=== PATIENT | female | born 1960 | race Caucasian/White ===

== ENCOUNTER 2016-12-08 10:10 | Inpatient (IN) | payer MEDICARE, BC ==
[~2016-12-08] VITALS: Ht 160 cm; Wt 73.4 kg
[~2016-12-08 10:10] MED LIST: ACTOS45 MG OR; ALBUTEROL0.5 % IN; ALBUTEROL90 MCG IN; CHERATUSSIN OR; DETROL LA4 MG OR; DETROL2 MG OR; ENALAPRIL20 MG OR; FOLIC ACID1 MG OR; GLIPIZIDE5 MG OR; HUMULIN R1 M1 SC; HYDROCHLOROT25 MG OR; LANTUS100 MG/ML SC; LIPITOR20 MG OR; LIPITOR40 MG OR; MELOXICAM15 MG OR; METFORMIN500 M1 OR; METOPROLOL25 M1 OR; METOPROLOL25 MG OR; MEVACOR20 MG PO; NAPROSYN500 MG OR; NORVASC PO; PLAVIX75 MG OR; PLAVIX75 MG PO; RANITIDINE150 M1 OR; VITAMIN D50000 UN1 OR; ZITHROMAX250 MG OR; ZOSTAVAX IM
--- NOTE | 2016-12-08 10:37 | NUR ---
PT TRIAGED, TO ROOM 8 IN STABLE CONDITION VIA WC. CHANGED INTO GOWN.
--- NOTE | 2016-12-08 10:37 | NUR ---
DR CHEN TO BEDSIDE.
--- NOTE | 2016-12-08 11:47 | NUR ---
PT IN NO ACUTE DISTRESS. LAB AT BEDSIDE ANSD LABS OBTAINED.VSS. DENIES DISCOMFORT
[2016-12-08 12:01] LABS: HEMATOCRIT 35.6 % (37.0-47.0); HEMOGLOBIN 11.4 g/dl (12.0-16.0); IMMATURE GRANULOCYTES 0.5 % (0.0-1.0); MEAN CELL VOLUME 84.6 fL CALC (80.0-100.0); MEAN CORPUSCULAR HGB 27.1 pG CALC (26.0-32.0); NEUT# 11.48 thou/uL (2.00-7.15); RED BLOOD COUNT 4.21 mill/uL (4.20-5.60)
[2016-12-08 12:20] LABS: ALBUMIN 3.5 g/dL (3.2-5.0); ALKALINE PHOSPHATASE 81 u/l (38-126); AMYLASE 55 u/l (30-110); ANION GAP 15 (6-22 (CALC)); BILIRUBIN, TOTAL 0.4 mg/dL (0.0-1.4); BUN 27 mg/dL (7-17); BUN/CREATININE RATIO 26 (12-20 (CALC)); CALCIUM 9.5 mg/dL (8.4-10.2); CARBON DIOXIDE 22 mmol/l (22-30); CHLORIDE 99 mmol/l (95-108); GFR 57 ML/MIN (>=60 (CALC)); GFR FOR AFR.AMER. > 60 ML/MIN (>=60 (CALC)); GLUCOSE 337 mg/dL (65-105); LIPASE 87 u/l (23-300); POTASSIUM 4.9 mmol/l (3.5-5.1); SGOT/AST 36 u/l (14-36); SGPT/ALT 49 u/l (9-52); SODIUM 132 mmol/l (137-146); TOTAL PROTEIN 7.3 g/dL (6.3-8.2)
--- NOTE | 2016-12-08 12:35 | NUR ---
UP TO BATHROOM WITH ASSIST. NO ACUTE DISTRESS. AWARE OF AWAITING
[2016-12-08] MEDS ORDERED: AMOX/K CLAV875 M1 PO (13:37)
[2016-12-08] MEDS ORDERED: TOPROL XL50 MG PO (13:38)
[2016-12-08] MEDS ORDERED: ATORVASTATIN CA80 MG PO (13:39)
[2016-12-08] MEDS ORDERED: ENALAPRIL20 MG PO (13:39)
[2016-12-08] MEDS ORDERED: LANTUS SOLOSTAR SC (13:41)
[2016-12-08] MEDS ORDERED: GABAPENTIN300 MG PO (13:42)
[2016-12-08] MEDS ORDERED: ZOFRAN ODT4 MG PO (13:43)
--- NOTE | 2016-12-08 13:50 | NUR ---
ATTEMPTED TO CALL REPORT. NURSE IN PT ROOM WILL CALL BACK
[2016-12-08 13:55] LABS: C. DIFFICILE TOXIN A&B NEGATIVE (NEGATIVE)
--- NOTE | 2016-12-08 14:05 | NUR ---
RT EJ INSERTED BY DR CHEN. PT TOELRATED WELL.
--- NOTE | 2016-12-08 14:20 | NUR ---
PT UP TO BATHROOM WITH ASSIST CONTINENT OF URINE.NO STOOL
--- NOTE | 2016-12-08 14:29 | NUR ---
ATTEMTPED TO CALL REPORT TO [facility]2 NURSE UNAVAILABLE
[2016-12-08 14:30] VITALS: BP 101/57
--- NOTE | 2016-12-08 14:51 | NUR ---
CALLED REPORT TO VIJAY LOMELI MS2. PT TRANSPORTED TO DC VIA IN STABLE CONDITION
[2016-12-08 15:00] VITALS: BP 165/62
--- NOTE | 2016-12-08 15:41 | NUR ---
REPORT RECEIVED FROM HILTON IN ED, PT ARRIVED ON UNIT ALERT, EXPRESIVE APHASIA OBSERVED, ABLE TO ANSWER SOME SIMPLE QUESTIONS AND UNDERSTANSS QUESTIONS BUT UNABLE TO EXPRESS VERBALLY WITH SOME ANSWERS. SETTLED IN BED, STATES SHE HAS LITTLE PAIN TO ABDOMED. SETTLED IN BED, BODY ALARM PLACED, CALL PIERCE IN REACH.
[2016-12-08 19:10] VITALS: BP 148/60
--- NOTE | 2016-12-08 20:46 | NUR ---
REPORT RECEIVED FROM OSCAR; PT.APPEARS RESTING AT THIS TIME; CALL LIGHT W/IN REACH
[2016-12-09] VITALS (7 sets, daily range): BP systolic 121–156; BP diastolic 50–71
[2016-12-09 06:19] LABS: HEMATOCRIT 32.8 % (37.0-47.0); HEMOGLOBIN 9.8 g/dl (12.0-16.0); IMMATURE GRANULOCYTES 0.5 % (0.0-1.0); MEAN CELL VOLUME 91.9 fL CALC (80.0-100.0); MEAN CORPUSCULAR HGB 27.5 pG CALC (26.0-32.0); MEAN CORPUSCULAR HGB CONC 29.9 g/L CALC (32.0-36.0); NEUT# 7.74 thou/uL (2.00-7.15); RED BLOOD COUNT 3.57 mill/uL (4.20-5.60); RED CELL DISTRI WIDTH 13.9 % (11.5-15.5)
[2016-12-09 06:36] LABS: ANION GAP 13 (6-22 (CALC)); BUN 20 mg/dL (7-17); BUN/CREATININE RATIO 23 (12-20 (CALC)); CALCIUM 9.2 mg/dL (8.4-10.2); CARBON DIOXIDE 20 mmol/l (22-30); CHLORIDE 106 mmol/l (95-108); CREATININE 0.8 mg/dL (0.5-1.0); GFR FOR AFR.AMER. > 60 ML/MIN (>=60 (CALC)); GLUCOSE 265 mg/dL (65-105); POTASSIUM 4.7 mmol/l (3.5-5.1); SODIUM 134 mmol/l (137-146)
[2016-12-09 06:45] LABS: GFR > 60 ML/MIN (>=60 (CALC))
--- NOTE | 2016-12-09 08:32 | NUR ---
REPORT RECIEVED FROM VIJAY GARCIA. PT SITTING UP IN RECLINER CHAIR. ASSESSMENT COMPLETED. VSS. PT VOICES NO CONCERNS OR NEEDS AT THIS TIME. IVF INFUSING AT PRESCRIBED RATE. WILL CONTINUE TO MONITOR. CALL LIGHT IN REACH.
--- NOTE | 2016-12-09 14:17 | NUR ---
ASSISTED PT BACK TO BED FROM RECLINER CHAIR. STAFF ASSIST. X1. WEAKNESS TO RIGHT SIDE FROM HX OF CVA. PT TOLERATED TRANSFER WELL. IV ABT INFUSING AT THIS TIME. WILL CONTINUE TO MONITOR. CALL LIGHT IN REACH.
--- NOTE | 2016-12-09 16:00 | NUR ---
PT IS SITTING IN THE CHAIR. NO DISTRESS NOTED. IV SITE IS FREE FROM REDNESS OR EDEMA.
--- NOTE | 2016-12-09 17:30 | NUR ---
SARAH FROM HOME HEALTH CALLED AND SPOKE TO PT PT TOLD HER SHE WANTED A BATH. PT DID HAVE A SHOWER THIS AM.
--- NOTE | 2016-12-09 20:05 | NUR ---
PT. RESTING IN BED ON RIGHT SIDE WATCHING TV. ASSESSMENT COMPLETED. PT HAS HX OF CVA, UNABLE TO MOVE RUE, VERY MINIMAL MOVEMENT TO RLE. RIGHT HAND SLIGHLY CONTRACTED AND ELEVATED RIGHT ARM ONTO PILLOW. PT. ALSO HAS DIFFICULTY WITH SPEECH R/T HX OF CVA. IV SITE PATENT TO LEFT WRIST AND ORDERED IVF INFUSING. PT. CHECKED FOR BM, NONE NOTED. PT. DENIES NEEDS. ENCOURAGED TO CALL FOR ANY NEEDS. CALL LIGHT IS IN REACH. WILL CONTINUE TO MONITOR.
--- NOTE | 2016-12-09 23:41 | NUR ---
PT. RESTING IN BED WITH NO DISTRESS NOTED. DENIES NEEDS/PAIN. ENCOURAGED TO CALL FOR ANY NEEDS. CALL LIGHT IS IN REACH. WILL CONTINUE TO MONITOR.
[2016-12-10 04:00] VITALS: BP 137/59
--- NOTE | 2016-12-10 04:42 | NUR ---
PT. RESTING IN BED WITH NO DISTRESS NOTED. DENIES NEEDS. ENCOURAGED TO CALL FOR ANY NEEDS.
[2016-12-10 06:01] LABS: ANION GAP 14 (6-22 (CALC)); BUN 12 mg/dL (7-17); BUN/CREATININE RATIO 16 (12-20 (CALC)); CALCIUM 9.4 mg/dL (8.4-10.2); CARBON DIOXIDE 22 mmol/l (22-30); CHLORIDE 108 mmol/l (95-108); CREATININE 0.7 mg/dL (0.5-1.0); GFR > 60 ML/MIN (>=60 (CALC)); GFR FOR AFR.AMER. > 60 ML/MIN (>=60 (CALC)); GLUCOSE 201 mg/dL (65-105); POTASSIUM 4.9 mmol/l (3.5-5.1); SODIUM 139 mmol/l (137-146)
[2016-12-10 06:03] LABS: HEMATOCRIT 34.2 % (37.0-47.0); HEMOGLOBIN 10.9 g/dl (12.0-16.0); IMMATURE GRANULOCYTES 0.4 % (0.0-1.0); MEAN CELL VOLUME 85.5 fL CALC (80.0-100.0); MEAN CORPUSCULAR HGB 27.3 pG CALC (26.0-32.0); MEAN CORPUSCULAR HGB CONC 31.9 g/L CALC (32.0-36.0); NEUT# 7.42 thou/uL (2.00-7.15); RED CELL DISTRI WIDTH 13.9 % (11.5-15.5)
--- NOTE | 2016-12-10 07:00 | NUR ---
RECEIVED BEDSIDE REPORT FROM ARI LINARES. PT RESTING IN SEMI FOWLERS. RESPS EVEN AND UNLABORED ON ROOM AIR, TELE MONITOR IN PLACE. VOICES NO C/O AT THIS TIME. #22LW INFUSING WITHOUT DIFFICULTY, SITE APPEARS HEALTHY. PLAN OF CARE DISCUSSED. SAFETY PRECAUTIONS REINFORCED. BED IN LOWEST POSITION WITH WHEELSOCKED. CALL LIGHT WITHIN REACH. WILL CONTINUE TO MONITOR.
[2016-12-10] MEDS ORDERED: METFORMIN500 M1 OR (07:22)
--- NOTE | 2016-12-10 08:16 | NUR ---
PHARMACY MEDICATION FOLLOW-UP Patient was seen in ED on 12/08/16 Cultures were reviewed from: Patient was discharged with Rx for:N/A C&S report came back with No Growth PLAN: Recommended: No Change Comment: NORMAL FECAL TITI. DIVERTICULITIS
[2016-12-10] MEDS ORDERED: LEVEMIR1000 UNITS SC ×2 (08:35)
[2016-12-10 08:36] VITALS: BP 187/56
[2016-12-10] MEDS ORDERED: INVANZ1 GM IJ (08:36)
[2016-12-10] MEDS ORDERED: METRONIDAZOL500 MG PO (08:36)
[2016-12-10 08:43] VITALS: BP 187/56
--- NOTE | 2016-12-10 11:30 | NUR ---
Discharge instructions given. Patient verbalizes understanding of same. Discharged in stable condition via Wheelchair to Home with family. All belongings sent with pt.
== END 2016-12-10 11:30 | disposition home or self-care (01) | DRG 378 ==
LOC: ENPENDDIS → ED 10:10 → ED-I 12:49 → ED 13:20 → MS2 13:21
PROVIDERS: Emergency Medicine; Internal Medicine; ADMIT Internal Medicine; ATTEND Internal Medicine
DX: K57.93 Diverticulitis of intestine, part unspecified, without perforation or abscess with bleeding (principal); A04.7 Enterocolitis due to Clostridium difficile; I69.951 Hemiplegia and hemiparesis following unspecified cerebrovascular disease affecting right dominant side; E11.65 Type 2 diabetes mellitus with hyperglycemia; I10 Essential (primary) hypertension; E78.5 Hyperlipidemia, unspecified; I69.920 Aphasia following unspecified cerebrovascular disease; Z95.5 Presence of coronary angioplasty implant and graft; Z79.4 Long term (current) use of insulin

== ENCOUNTER 2016-12-12 21:01 | Emergency (ER) | payer MEDICARE, BC ==
[~2016-12-12] VITALS: Ht 152.4 cm; Wt 72.5 kg
[~2016-12-12 21:01] MED LIST changes: +AMOX/K CLAV875 M1 PO; +ATORVASTATIN CA80 MG PO; +ENALAPRIL20 MG PO; +GABAPENTIN300 MG PO; +INVANZ1 GM IJ; +LANTUS SOLOSTAR SC; +LEVEMIR1000 UNITS SC; +METRONIDAZOL500 MG PO; +TOPROL XL50 MG PO; +ZOFRAN ODT4 MG PO
[2016-12-12 21:22] LABS: HEMATOCRIT 33.3 % (37.0-47.0); HEMOGLOBIN 10.8 g/dl (12.0-16.0); IMMATURE GRANULOCYTES 1.3 % (0.0-1.0); MEAN CELL VOLUME 82.8 fL CALC (80.0-100.0); MEAN CORPUSCULAR HGB 26.9 pG CALC (26.0-32.0); MEAN CORPUSCULAR HGB CONC 32.4 g/L CALC (32.0-36.0); NEUT# 18.43 thou/uL (2.00-7.15); RED BLOOD COUNT 4.02 mill/uL (4.20-5.60); RED CELL DISTRI WIDTH 14.2 % (11.5-15.5)
[2016-12-12 21:44] LABS: ALBUMIN 3.2 g/dL (3.2-5.0); ALKALINE PHOSPHATASE 87 u/l (38-126); ANION GAP 16 (6-22 (CALC)); BUN 23 mg/dL (7-17); BUN/CREATININE RATIO 23 (12-20 (CALC)); CARBON DIOXIDE 22 mmol/l (22-30); CHLORIDE 93 mmol/l (95-108); GFR 57 ML/MIN (>=60 (CALC)); GFR FOR AFR.AMER. > 60 ML/MIN (>=60 (CALC)); GLUCOSE 411 mg/dL (65-105); SGOT/AST 59 u/l (14-36); SGPT/ALT 44 u/l (9-52); SODIUM 126 mmol/l (137-146); TOTAL PROTEIN 6.6 g/dL (6.3-8.2)
[2016-12-12 21:55] LABS: MYOGLOBIN 91 ng/mL (0 - 62)
[2016-12-12 23:03] LABS: URINE BILIRUBIN - DIPSTICK NEGATIVE (NEGATIVE); URINE BLOOD DIPSTICK TRACE-INTACT (NEGATIVE); URINE CLARITY CLOUDY; URINE COLOR YELLOW; URINE GLUCOSE - DIPSTICK >=1000 mg/dL (NEGATIVE); URINE KETONE TRACE mg/dL (NEGATIVE); URINE LEUK ESTERASE NEGATIVE (NEGATIVE); URINE NITRITE - DIPSTICK NEGATIVE (Negative); URINE PH 5.5 (4.5-8.0); URINE PROTEIN - DIPSTICK TRACE mg/dL (NEG-TRACE); URINE UROBILINOGEN - DIPSTICK 0.2 E.U./dL (0.2)
[2016-12-12 23:08] LABS: BARBITURATES NEGATIVE (NEGATIVE); COCAINE NEGATIVE (NEGATIVE); METHADONE NEGATIVE (NEGATIVE); TETRAHYDROCANNABIONOL NEGATIVE (NEGATIVE); TRICYLIC ANTIDEPRESSANTS NEGATIVE (NEGATIVE)
[2016-12-12 23:09] LABS: OXCYCODONE NEGATIVE (NEGATIVE)
[2016-12-13 01:50] VITALS: BP 176/75
== END 2016-12-13 01:50 | disposition short-term general hospital (02) ==
LOC: ED 21:01
PROVIDERS: Emergency Medicine
PROC: 0T9B70Z Drainage of Bladder with Drainage Device, Via Natural or Artificial Opening (ICD-10-PCS; principal; 2016-12-12)
DX: R79.89 Other specified abnormal findings of blood chemistry (principal); R41.82 Altered mental status, unspecified; D72.829 Elevated white blood cell count, unspecified; E10.65 Type 1 diabetes mellitus with hyperglycemia; Z79.4 Long term (current) use of insulin; R50.9 Fever, unspecified; R94.31 Abnormal electrocardiogram [ECG] [EKG]; R00.0 Tachycardia, unspecified; W19.XXXA Unspecified fall, initial encounter; Y92.009 Unspecified place in unspecified non-institutional (private) residence as the place of occurrence of the external cause; I69.359 Hemiplegia and hemiparesis following cerebral infarction affecting unspecified side; I10 Essential (primary) hypertension; K57.92 Diverticulitis of intestine, part unspecified, without perforation or abscess without bleeding
CPT/HCPCS: J1335

== ENCOUNTER 2017-01-15 14:34 | Emergency (ER) | payer MEDICARE, BC ==
[~2017-01-15] VITALS: Ht 160 cm; Wt 80.0 kg
[2017-01-15 16:02] VITALS: BP 189/71
== END 2017-01-15 17:00 ==
LOC: ED 14:34
DX: Z43.3 Encounter for attention to colostomy (principal)